=== PATIENT | male | born 1940 | race Hispanic/Latino ===

== ENCOUNTER 2017-11-18 07:30 | Day surgery (SDC) | payer MEDICARE ==
[2017-10-16 10:43] VITALS: BMI 28.1
[2017-11-18 08:01] VITALS: RESP 16
[2017-11-18] MEDS ORDERED: Propofol 10 mg/ml Inj (20 ML) ONE (08:44)
[2017-11-18] MEDS ORDERED: Sodium Chloride 0.9% 1,000 ML IV SCH (09:00)
[2017-11-18 10:08] VITALS: BP 119/67; PULSE 52; TEMP 97.1; O2SAT 99
== END 2017-11-18 10:34 | disposition home or self-care (01) ==
LOC: ENDO 07:30
PROVIDERS: ATTEND Specialist
DX: K21.0 Gastro-esophageal reflux disease with esophagitis (principal); K44.9 Diaphragmatic hernia without obstruction or gangrene; K25.9 Gastric ulcer, unspecified as acute or chronic, without hemorrhage or perforation; K29.50 Unspecified chronic gastritis without bleeding; R07.89 Other chest pain; I10 Essential (primary) hypertension; K42.9 Umbilical hernia without obstruction or gangrene; Z86.19 Personal history of other infectious and parasitic diseases; Z85.820 Personal history of malignant melanoma of skin
CPT/HCPCS: 43239; 88305; 88312; 88342; J2704; J7040 ×2